=== PATIENT | male | born 1990 | race Two or more races ===

== ENCOUNTER 2018-10-14 18:02 | Emergency (ER) | payer BC, OTHER ==
[~2018-10-14] VITALS: Ht 167.6 cm; Wt 99.8 kg
[2018-10-14 19:07] VITALS: BP 143/94
== END 2018-10-14 21:21 | disposition home or self-care (01) ==
LOC: ER 18:05
DX: M54.5 Low back pain (principal); M62.830 Muscle spasm of back; Z88.6 Allergy status to analgesic agent
CPT/HCPCS: 72100